=== PATIENT | female | born 1990 | race Hispanic/Latino ===

== ENCOUNTER 2017-06-22 17:25 | Inpatient (IN) | payer BC ==
[2017-06-21 17:58] VITALS: BMI 34.2
[2017-06-22] MEDS ORDERED: Lactated Ringer's 1,000 ML IV SCH (18:45)
[2017-06-22 18:56] LABS: BASO # 0.1 K/uL (0.0-0.2); BASO % 0.5 % (0.0-2.0); EOS # 0.1 K/uL (0.0-0.7); EOS % 0.7 % (0.0-4.0); HEMOGLOBIN 11.3 g/dL (11.0-16.0); LYMPH # 2.5 K/uL (1.0-4.3); LYMPH % 22.3 % (20.0-40.0); MEAN CELL VOLUME 84.7 fL (81.0-99.0); MEAN CORPUSCULAR HEMOGLOBIN 28.3 pg (27.0-31.0); MEAN CORPUSCULAR HGB CONC 33.5 g/dL (33.0-37.0); MEAN PLATELET VOLUME 9.2 fL (7.2-11.7); MONO # 0.6 K/uL (0.0-0.8); MONO % 5.3 % (0.0-10.0); NEUT % 71.2 % (50.0-75.0); NRBC % 0.1 % (0.0-2.0); RBC 3.98 Mil/uL (3.80-5.20); RED CELL DISTRIBUTION WIDTH 13.8 % (11.5-14.5); WHITE BLOOD COUNT 11.3 K/uL (4.8-10.8)
--- NOTE | 2017-06-22 20:37 | CP.PCM.HP ---
<Olive Lyons - Last Filed: 06/22/17 20:53> History of Present Illness - History of Present Illness History of Present Illness: 26 G1P) @ 38 05/17 admitted for IOL for gestational hypertension. Pt states that her blood pressure started rising about 3 weeks ago and started having increased surveillance. She presented to the hospital last night for headache but was found to have normal blood pressure and was sent home. She was seen in the office yesterday with blood pressure of 141/86. She is here today to be induced for Gestational hypertension Present on Admission - Present on Admission Any Indicators Present on Admission: Yes History of DVT/PE: No History of Uncontrolled Diabetes: No Urinary Catheter: No Decubitus Ulcer Present: No Review of Systems - Review of Systems All systems: reviewed and no additional remarkable complaints except - Constitutional Constitutional: As Per HPI - EENT Eyes: As Per HPI Ears: As Per HPI Nose/Mouth/Throat: As Per HPI - Breasts Breasts: As Per HPI - Cardiovascular Cardiovascular: As Per HPI - Respiratory Respiratory: As Per HPI - Gastrointestinal Gastrointestinal: As Per HPI, Abdominal Pain - Genitourinary Genitourinary: As Per HPI - Reproductive: Female Reproductive:Female: As Per HPI - Menstruation Menstruation: As Per HPI - Musculoskeletal Musculoskeletal: As Per HPI - Integumentary Integumentary: As Per HPI Past Patient History - Infectious Disease Hx of Infectious Diseases: None - Tetanus Immunizations Tetanus Immunization: Unknown - Past Medical History & Family History Past Medical History?: Yes Past Family History: Reviewed and not pertinent Pertinent Family History: Past Medical History: Asthma on albuterol. Last attack: prior to . - Past Social History Smoking Status: Never Smoked Alcohol: None Drugs: Denies - CARDIAC Hx Cardiac Disorders: No Hx Angina: No Hx Atrial Fibrillation: No Hx Cardia Arrhythmia: No - PULMONARY Hx Respiratory Disorders: No Hx Asthma: No Hx Bronchitis: No Hx Chronic Obstructive Pulmonary Disease (COPD): No - NEUROLOGICAL Hx Neurological Disorder: No Hx Alzheimer's Disease: No HX Cerebrovascular Accident: No Meds Allergies/Adverse Reactions: Allergies Allergy/AdvReac Type Severity Reaction Status Date / Time No Known Allergies Allergy Verified 06/21/17 17:58 Physical Exam - Head Exam Head Exam: NORMAL INSPECTION - Eye Exam Eye Exam: Normal appearance Pupil Exam: NORMAL ACCOMODATION - ENT Exam ENT Exam: Normal Exam - Neck Exam Neck exam: Positive for: Normal Inspection - Respiratory Exam Respiratory Exam: NORMAL BREATHING PATTERN - Cardiovascular Exam Cardiovascular Exam: REGULAR RHYTHM - Rectal Exam Rectal Exam: NORMAL INSPECTION - Exam Exam: NORMAL INSPECTION Speculum exam: NORMAL SPECULUM EXAM Bimanual exam: NORMAL BIMANUAL EXAM - Back Exam Back exam: NORMAL INSPECTION - Neurological Exam Neurological exam: Alert, Normal Gait - Skin Skin Exam: Normal Color Results - Labs Result Diagrams: 06/22/17 18:53 Labs: Laboratory Results - last 24 hr 06/22/17 06/22/17 18:53 18:53 WBC 11.3 H RBC 3.98 Hgb 11.3 Hct 33.7 L MCV 84.7 MCH 28.3 MCHC 33.5 RDW 13.8 Plt Count 216 MPV 9.2 Neut % (Auto) 71.2 Lymph % (Auto) 22.3 Wallace % (Auto) 5.3 Eos % (Auto) 0.7 Baso % (Auto) 0.5 Neut # (Auto) 8.0 H Lymph # (Auto) 2.5 Wallace # (Auto) 0.6 Eos # (Auto) 0.1 Baso # (Auto) 0.1 RPR Nonreactive Assessment & Plan - Assessment and Plan (Free Text) Assessment: 26 @ 38 05/17 admitted for IOL for GHTN Plan: 1) IOL for GHTN:-> cervidil inserted. 2) Category 1 tracing. 3) SVE: closed/long/hi 4) Will get records: GBS unknown. Decision To Admit - Pt Status Changed To: Hospital Disposition Of: Observation - . Bed Request Type: Regular Admitting Physician: Melanie Alexis <Melanie Alexis - Last Filed: 06/22/17 23:26> History of Present Illness - History of Present Illness History of Present Illness: agree iwth above, however pt dc home yestefy and had labile bloo dpruessure overinghtr but this mornign still having headache with floaters worsneing since ysterdy and more so ove rpats 1 week pt was referred to [facility] in which decciisn was made to admit fo yary Mckeon md Results - Labs Result Diagrams: 06/22/17 18:53 Labs: Laboratory Results - last 24 hr 06/22/17 06/22/17 06/22/17 18:53 18:53 20:02 WBC 11.3 H RBC 3.98 Hgb 11.3 Hct 33.7 L MCV 84.7 MCH 28.3 MCHC 33.5 RDW 13.8 Plt Count 216 MPV 9.2 Neut % (Auto) 71.2 Lymph % (Auto) 22.3 Wallace % (Auto) 5.3 Eos % (Auto) 0.7 Baso % (Auto) 0.5 Neut # (Auto) 8.0 H Lymph # (Auto) 2.5 Wallace # (Auto) 0.6 Eos # (Auto) 0.1 Baso # (Auto) 0.1 RPR Nonreactive HIV 1&2 Antibody Screen Negative Blood Type Antibody Screen 06/22/17 20:02 WBC RBC Hgb Hct MCV MCH MCHC RDW Plt Count MPV Neut % (Auto) Lymph % (Auto) Wallace % (Auto) Eos % (Auto) Baso % (Auto) Neut # (Auto) Lymph # (Auto) Wallace # (Auto) Eos # (Auto) Baso # (Auto) RPR HIV 1&2 Antibody Screen Blood Type A POSITIVE Antibody Screen Negative
[2017-06-22] MEDS ORDERED: Nalbuphine 20 mg/ml Inj (1 ml) IVP PRN (21:15)
[2017-06-23] MEDS ORDERED: Lactated Ringer's 1,000 ML IV ONE (03:15)
[2017-06-23] MEDS: Lactated Ringer's 1,000 ML IV SCH ×2 (04:28→12:38)
--- NOTE | 2017-06-23 06:46 | OBPN ---
Datetime: 06/23/2017 06:42 IP Progress Impression: Reactive non-stress test; Gest. HTN/PreEclampsia/Eclampsia IP Informed Consent Obtain: Induction of Labor; Risks, Benefits and Alternatives Discussed IP Progress Plan: Induction; Cervical Ripening Membranes, Provider: Intact Contraction Comments Provider: Q5 minutes FHR - Baseline A Provider: 150 IP Progress Note Comment: Cervidil removed 6:43am. SVE: /-3. NST reactive. category 1 NICHD Accel Fetus A IP Provider: 15X15 NICHD Variability Prov Fetus A: Moderate 6-25bpm Dilatation, Provider: 1 Effacement, Provider: 50 Station, Provider: -3 NICHD Decel Fetus A IP Provider: None Datetime: 06/22/2017 18:46 Gestation - Est Wks by US: 38 4/7 Vital Signs Provider: Reviewed FHR Category Provider Fetus A: Category III Datetime: 06/21/2017 19:50 Presentation-Admit: Vertex
[2017-06-23] MEDS ORDERED: Oxytocin 30 UNIT 30 UNITS/500 ML BAG IV SCH (07:30)
[2017-06-23] MEDS ORDERED: Oxytocin 30 UNIT 30 UNITS/500 ML BAG IV ONE (08:38)
[2017-06-23] MEDS: Prenatal Multivit/Folic Acid/Iron Tab PO SCH (10:58)
--- NOTE | 2017-06-23 12:20 | OBADHP ---
Datetime: 06/22/2017 18:46 Admit Comment, IP Provider: 26G1P) @ 38 4/7 admitted for IOL for GHTN. Pt states that her pressures have been elevated for the last 3 weeks. Pt was seen yesterday for complaints of headache, elevated b p. The decision was made for IOL for GHTN. POBHx: during this : low lying placenta 2.5cm from the OS (US last may) PMHx: Asthma. Last Attack: prior to the Meds: Albuterol PSHx: back surgeries. Social Denies ETOH, Alcohol. ALL; NKDA [employer] MAN: last pap 2014 ROS: All Negative. A/P: Admitted for IOL for GHTN 1) Cervidil inserted. 2) Bedside US: showed cephalic 3) SVE: closed/long/hi Pelvic Type - PN: Adequate Extremities - PN: Normal Abdomen - PN: Normal Back - PN: Normal Breast - PN: Normal Lungs - PN: Normal Heart - PN: Normal Thyroid - PN: Normal Neurologic - PN: Normal HEENT - PN: Normal General - PN: Normal FHR - Baseline A Provider: 140 Comments, ACOG Physical Exam: Bedside US done: Cephalic presentation confirmed. Gestation - Est Wks by US: 38 4/7 Vital Signs Provider: Reviewed IP Chief Complaint: Signs/Symptoms Gestational HTN NICHD Variability Prov Fetus A: Moderate 6-25bpm NICHD Accel Fetus A IP Provider: 15X15 FHR Category Provider Fetus A: Category III Dilatation, Provider: closed Effacement, Provider: long Station, Provider: high Genitourinary Exam: Normal DTRs - PN: Normal EGA AdmitDate IP: 38.4 IP Adm Impression: Term, intrauterine IP Admit Plan: Admit to unit Signature: angel dutta Datetime: 06/21/2017 19:50 IP Chief Complaint Other: headaches Presentation-Admit: Vertex Contraction Comments Provider: occasional NICHD Decel Fetus A IP Provider: None
--- NOTE | 2017-06-23 12:48 | OBPN ---
Datetime: 06/23/2017 12:46 IP Progress Impression: Normal progression of labor IP Progress Plan: Continue present management FHR - Baseline A Provider: 120 Gestation - Est Wks by US: 38.5 IP Progress Note Comment: pt maricel and examien rperots cramping on and off vss ve; 2cm A/P @38.5 wks GA IOL gestatnaion hypetenison s/p cervidil for pitocin pain mangment cont current mangnet bp preleamic labs NICHD Variability Prov Fetus A: Moderate 6-25bpm Dilatation, Provider: 2 NICHD Decel Fetus A IP Provider: None
[2017-06-23] MEDS ORDERED: Nalbuphine 20 mg/ml Inj (1 ml) ONE (15:00)
[2017-06-23] MEDS ORDERED: cefOXitin IV 2 gm in Saline 2 GM in Sodium Chloride 0.9% 50 ML IV STA (17:39)
[2017-06-23] MEDS ORDERED: Sodium Citrate/Citric Acid 15 ml Sol PO STA (17:40)
[2017-06-23] MEDS ORDERED: cefOXitin IV 2 gm in Saline 2 GM/50 ML BAG IVPB ONE (17:43)
[2017-06-23] MEDS ORDERED: Oxytocin 20 units in LR 2,000 ML IV ONE (18:22)
[2017-06-23] MEDS ORDERED: Morphine 1 mg/ml preservative-free Inj(Duramorph) ONE (18:37)
[2017-06-23] MEDS ORDERED: Oxytocin 10 Units/ml Inj ONE (19:12)
--- NOTE | 2017-06-23 20:04 | OBDS ---
DELIVERY PERSONNEL Delivery Doctor: Kian Alexis MD Scrub Nurse: Nakita Nelson [place]: Madelyn Rooney RN Anesthesiologist: Dr López MATERNAL INFORMATION Delivery Anesthesia: Spinal Medications in Delivery: Pitocin 20 units Estimated Blood Loss (ml): 800 Placenta Cultured: Yes Maternal Complications: None Provider Comments: pt delived by plctsc tight nuchal x 1 reduced, ebl 800 ml normla appeairn gutuers , tubes and ovaries b/l pedisatiricn was present ofr kaylahievyer agpar 9,9 weight of 7lbs 1 ounces LABOR SUMMARY EDC: 07/02/2017 00:00 No. Babies in Womb: 1 Attempted: No Labor Anesthesia: IV Sedation LABOR INFORMATION Cervical Ripening Agents: Cervidil (Annotations: [address] MARIN) Oxytocin: Induction Group B Beta Strep: Negative Antibiotics # of Doses: 0 Antibiotics Time of Last Dose: 0 Steroids Given: None Reason Steroids Not Administered: Not Applicable MEMBRANES Membranes Rupture Method: Artificial Rupture of Membranes: 06/23/2017 19:03 Length of Rupture (hrs): 0.05 Amniotic Fluid Color: Clear Amniotic Fluid Amount: None Amniotic Fluid Odor: None STAGES OF LABOR Stage 3 hrs: 0 Stage 3 min: 1 CSECTION DELIVERY Primary Indication: Failure of Descent CSection Urgency: Non Elective CSection Incidence: Primary Labor: Labor CSection Incision: Lower Uterine Transverse BABY A INFORMATION Infant Delivery Date/Time: 06/23/2017 19:06 Method of Delivery: Born in Route : No : N/A Forceps: N/A Vacuum Extraction: N/A Shoulder Dystocia : No SHOULDER DYSTOCIA BABY A Delivery Date/Time: 06/23/2017 19:06 PRESENTATION/POSITION BABY A Presentation: Cephalic Cephalic Presentation: Vertex Vertex Position: Left Occipital Anterior Breech Presentation: N/A PLACENTA INFORMATION BABY A Placenta Delivery Time : 06/23/2017 19:07 Placenta Method of Delivery: Manual Removal Placenta Status: Delivered SCORES BABY A Heart Rate 1 min: >100 bpm Resp Effort 1 min: Good Cry Reflex Irritability 1 min: Cough or Sneeze or Pulls Away Muscle Tone 1 min: Active Motion Color 1 min: Body [place], Extremities Blue Resuscitation Effort 1 min: Tactile Stimulation SCORE 1 MIN: 9 Heart Rate 5 min: >100 bpm Resp Effort 5 min: Good Cry Reflex Irritability 5 min: Cough or Sneeze or Pulls Away Muscle Tone 5 min: Active Motion Color 5 min: Body [place], Extremities Blue Resuscitation Effort 5 min: N/A SCORE 5 MIN: 9 INFORMATION BABY A Gestational Age at Delivery: 38.4 Gestational Status: Term Outcome : Liveborn Condition : Stable Sex: Male IDENTIFICATION/MEDS BABY A ID Band Number: [id number] ID Band Location: Left Leg; Left Arm Sensor Applied: Yes Sensor Number: [id number] Sensor Location : Cord Clamp Vitamin K Given : Aquamephyton 1 mg IM; Left Thigh Erythromycin Given: Given Both Eyes WEIGHT/LENGTH BABY A Birthweight (gms): 3205 Infant Weight (lb): 7 Weight (oz): 1 Length Inches: 19.00 Length cms: 48.3 CORD INFORMATION BABY A No. Cord Vessels: 3 Nuchal Cord : N/A Cord Blood Taken: Yes Suction: Mouth; Nose ASSESSMENT BABY A Complications: None Physical Findings at Delivery: Within Normal Limits Respirations: Appears Normal Survey Methodologist/ALS Called : Yes Infant Care By: Dr Ruano Transferred To: Remains with Mother
--- NOTE | 2017-06-23 20:18 | PCM.SURG1 ---
Surgeon's Initial Post Op Note - Surgeon's Notes Surgeon: Melanie Alexis MD Supervisor Facepiece Line: Piedad Billings Type of Anesthesia: Spinal Pre-Operative Diagnosis: Term intrauteirne prengnacy, failed IOL Operative Findings: live male infnat, cephaic presentation, tihgt nuchal cord x 1, reudced, kathya appearin guteurs, tubes and ovaires b/l. [facility]. apgae r9, 9 weigh to f7lbs1 ounces. [address] Piedad Billings was surigcal speech therapy assistant and prsent for entire case and essential in gaining entry, retraction , epxouser, holidn gthe bladder blade, closeing all layers. Post-Operative Diagnosis: same as above Operation Performed: Primary Low transverse Cesearean section Specimen/Specimens Removed: placenta Estimated Blood Loss: EBL {In ML}: 800 Blood Products Given: N/A Drains Used: No Drains Post-Op Condition: Good Date of Surgery/Procedure: 06/23/17 Time of Surgery/Procedure: 18:30
[2017-06-24] MEDS ORDERED: Midazolam 2 MG/2 ML VIAL ONE (01:28)
[2017-06-24] MEDS ORDERED: Propofol 10 mg/ml Inj (20 ML) ONE (01:40)
[2017-06-24] MEDS ORDERED: cefOXitin IV 2 gm in Saline 2 GM in Sodium Chloride 0.9% 50 ML IV SCH (02:15)
--- NOTE | 2017-06-24 06:59 | OBPPN ---
Datetime: 06/24/2017 06:59 PP Pain Prov: Within normal limits PP Nausea Prov: Denies PP Flatus Prov: No PP BM Prov: No PP Breasts Prov: Normal PP Heart Prov: Normal PP Lungs Prov: Normal PP Abdomen/Uterus Prov: Normal PP Lochia Prov: Normal PP Vulva/Perineum Prov: Normal PP CVA Tenderness Prov: Normal PP Extremities Prov: Normal PP C/S Incision Prov: Normal PP Progress Prov: Normal PP Impression Prov: Normal progression PP Plan Prov: Continue present management PP Progress Note Prov: pt seen and examiend adn reprots pain controlled with medicaion. pt dnei any fever, chills, naue, vomitign, cp, sob. pt not yet ambaitng, +rojas cathether, not passign flatu, toe lrating liuid and is breat feeding VSS PE GEN NAD AA ox 3 RESP CTAB?l CVS: RRR< +S1/S2 BREAST NT, NOn engorage db/l ABD: soft, NT/ND, +BS FUNDUS: Firm, at level o fumbilcs VE: minimal lochia, non foul smelling EXT: no calef tendnerness, engaive homans sign A/P s/p PLTCS POD #1 -Pain manamgnet: perocet/motirn -Advance diet at tolerated -dc rojas -encourage breast feedign adn mabuaiton -bowel ergime -Incentive spirometer -am labs -cont routine postop care Vital Signs Provider PP: Reviewed; Within Normal Limits
--- NOTE | 2017-06-24 07:38 | OP ---
PROCEDURE DATE: 06/23/2017 SURGEON: Melanie Alexis MD LABORATORY ANALYST: Ash Billings MD TYPE OF ANESTHESIA: Spinal. PREOPERATIVE DIAGNOSIS: Term intrauterine , failed induction of labor. POSTOPERATIVE DIAGNOSIS: Term intrauterine , failed induction of labor. OPERATIVE FINDINGS: Live male infant, cephalic presentation, tight nuchal cord x1 reduced, normal-appearing uterus, tubes, and ovaries bilaterally. Print Line Inspector present for delivery. Apgars 9 and 9, weight is [address] Ash Billings, the surgical processor was present for the entire case, essential in gaining entry, retraction, exposure, holding the bladder blade, closing all layers. OPERATION PERFORMED: Primary low transverse section. SPECIMEN REMOVED: Placenta. ESTIMATED BLOOD LOSS: 300 mL. BLOOD PRODUCTS: None. COMPLICATIONS: None. DESCRIPTION OF PROCEDURE: The patient was taken to the operating room where she was given spinal anesthesia. Once it was found to be adequate, she was positioned on the operating table in dorsal supine position. The patient was given preoperative prophylactic antibiotics. A Pfannenstiel skin incision was made with a scalpel and carried down to the underlying fascia with a Bovie. The fascia was incised in the midline and incision was extended laterally with the Bovie. The inferior aspect of the fascial incision was grasped with Allis and Jodi clamps, and the underlying rectus muscles were dissected off bluntly. Attention was then turned to the superior aspect of the incision which in a similar fashion, was grasped with Allis and Jodi clamps and the underlying rectus muscles were dissected off bluntly. The rectus muscles were then bluntly in the midline. The peritoneum was identified and entered into clear space. The incision was extended laterally and superiorly until there was good visualization of the bladder. The lower end of the Jailene was then reinserted. The lower uterine segment was incised in a transverse fashion superior to the vesicouterine reflection. The uterine incision was extended laterally bluntly. The umbilical cord was noted to be protruding. First, the surgeon's hand entered the uterine cavity. The 's head was delivered atraumatically. Tight nuchal cord x1, which was loosened, followed by delivery of the shoulders, followed by delivery of the body. Both oral and nasal passages of the baby were bulb suctioned. Umbilical cord was clamped and cut. Baby was handed off to the awaiting industrial maintenance technician. Cord blood and cord gases were collected and sent x2. The placenta was then delivered manually. The uterus was exteriorized, cleared of clots and debris. The uterine incision was closed with 0 Vicryl in a running continuous locked fashion. A second layer of the same suture was used to close the uterus in a running imbricating manner. There was good hemostasis noted at the uterine incision site. The peritoneum was reapproximated and closed with 2-0 chromic in running continuous fashion. The rectus was reapproximated and closed with 2-0 chromic in an interrupted manner. The fascia was reapproximated and closed with 0 Vicryl in a running continuous fashion. Subcuticular layers were closed with 2-0 plain in an interrupted manner. The skin was reapproximated and closed with 4-0 Monocryl in a running subcuticular fashion. At the end of the procedure, all needle, sponge, and instrument counts were noted to be correct x2. The patient tolerated the procedure well and was transferred to the recovery room in stable condition. Melanie Alexis MD
[2017-06-24 08:09] LABS: BASO % 0.3 % (0.0-2.0); EOS % 0.3 % (0.0-4.0); HEMOGLOBIN 9.6 g/dL (11.0-16.0); LYMPH # 1.1 K/uL (1.0-4.3); LYMPH % 9.4 % (20.0-40.0); MEAN CELL VOLUME 85.2 fL (81.0-99.0); MEAN CORPUSCULAR HEMOGLOBIN 28.4 pg (27.0-31.0); MEAN CORPUSCULAR HGB CONC 33.3 g/dL (33.0-37.0); MEAN PLATELET VOLUME 9.1 fL (7.2-11.7); MONO # 0.5 K/uL (0.0-0.8); MONO % 4.4 % (0.0-10.0); NEUT # 9.7 K/uL (1.8-7.0); NEUT % 85.6 % (50.0-75.0); PLATELET COUNT 153 K/uL (130-400); RBC 3.39 Mil/uL (3.80-5.20); RED CELL DISTRIBUTION WIDTH 13.4 % (11.5-14.5); WHITE BLOOD COUNT 11.3 K/uL (4.8-10.8)
[2017-06-24] MEDS: Oxycodone/Acetaminophen 5/325 mg Tab PO PRN ×5 (08:33→21:12)
[2017-06-24 09:45] LABS: BANDS 6 % (0-2); LYMPHOCYTE 8 % (20-40); MONOCYTE 6 % (0-10); NEUTROPHIL 80 % (50-75); TOTAL CELLS COUNTED 100
[2017-06-24 09:46] LABS: PLATELET ESTIMATE NORMAL (NORMAL)
[2017-06-24] MEDS: Simethicone 80 mg Chewtab PO SCH ×4 (11:23→22:13)
[2017-06-24] MEDS: Prenatal Multivit/Folic Acid/Iron Tab PO SCH (11:23)
[2017-06-24] MEDS: Lactated Ringer's 1,000 ML IV SCH (11:28)
[2017-06-24] MEDS: Magnesium Hydroxide Susp 30 ml UD PO SCH ×2 (11:29→17:44)
[2017-06-25] MEDS: Oxycodone/Acetaminophen 5/325 mg Tab PO PRN ×5 (01:20→20:02)
[2017-06-25 08:26] LABS: BASO % 0.3 % (0.0-2.0); EOS # 0.1 K/uL (0.0-0.7); HEMOGLOBIN 9.1 g/dL (11.0-16.0); LYMPH # 1.7 K/uL (1.0-4.3); LYMPH % 14.5 % (20.0-40.0); MEAN CELL VOLUME 85.1 fL (81.0-99.0); MEAN CORPUSCULAR HEMOGLOBIN 28.7 pg (27.0-31.0); MEAN CORPUSCULAR HGB CONC 33.8 g/dL (33.0-37.0); MEAN PLATELET VOLUME 8.6 fL (7.2-11.7); MONO # 0.6 K/uL (0.0-0.8); MONO % 5.2 % (0.0-10.0); NEUT # 9.4 K/uL (1.8-7.0); RBC 3.16 Mil/uL (3.80-5.20); RED CELL DISTRIBUTION WIDTH 13.9 % (11.5-14.5); WHITE BLOOD COUNT 11.8 K/uL (4.8-10.8)
[2017-06-25] MEDS: Prenatal Multivit/Folic Acid/Iron Tab PO SCH (10:46)
[2017-06-25] MEDS: Simethicone 80 mg Chewtab PO SCH ×4 (10:46→21:48)
[2017-06-25] MEDS: Magnesium Hydroxide Susp 30 ml UD PO SCH ×2 (10:47→18:04)
[2017-06-26 00:29] VITALS: O2SAT 98
[2017-06-26] MEDS: Oxycodone/Acetaminophen 5/325 mg Tab PO PRN ×3 (01:13→10:57)
[2017-06-26] MEDS: Prenatal Multivit/Folic Acid/Iron Tab PO SCH (09:32)
[2017-06-26] MEDS: Simethicone 80 mg Chewtab PO SCH ×2 (09:32→13:24)
[2017-06-26 21:55] VITALS: BP 119/73; PULSE 90; RESP 18; TEMP 97
== END 2017-06-26 16:00 | disposition home or self-care (01) | DRG 766 ==
LOC: C.EROB 17:25 → C.4D 18:30 → C.4M 06-23 22:38
PROVIDERS: ADMIT Obstetrics & Gynecology; ATTEND Obstetrics & Gynecology
PROC: 10D00Z1 Extraction of Products of Conception, Low, Open Approach (ICD-10-PCS; principal; 2017-06-23)
PROC: 3E0P7VZ Introduction of Hormone into Female Reproductive, Via Natural or Artificial Opening (ICD-10-PCS; 2017-06-23)
PROC: 10907ZC Drainage of Amniotic Fluid, Therapeutic from Products of Conception, Via Natural or Artificial Opening (ICD-10-PCS; 2017-06-23)
DX: O13.4 Gestational [pregnancy-induced] hypertension without significant proteinuria, complicating childbirth (principal); O69.1XX0 Labor and delivery complicated by cord around neck, with compression, not applicable or unspecified; J45.909 Unspecified asthma, uncomplicated; O15.1 Eclampsia complicating labor; O99.52 Diseases of the respiratory system complicating childbirth; O61.9 Failed induction of labor, unspecified; O32.4XX0 Maternal care for high head at term, not applicable or unspecified; Z3A.38 38 weeks gestation of pregnancy; Z37.0 Single live birth